=== PATIENT | female | born 1950 | race Caucasian/White ===

== ENCOUNTER 2019-08-29 14:26 | Day surgery (SDC) | payer SELFPAY ==
[~2019-08-29] VITALS: Ht 149.9 cm; Wt 59.5 kg
[~2019-08-29 14:26] MED LIST: AMLO-150 PO; ASPI-496 PO; ATOR10TA9 PO; CALC667C PO; CHOL5000 PO; CYAN1TAB29 PO; DOCU-131 PO; ENAL20TA PO; ERGO500017 PO; FOLI-17 PO; FURO-92 PO; HYDR-3240 PO; INSU100I13 SC; INSU100V14 SC; LANT1000 PO; METO-99 PO; SEVE800T7 PO; SIMV20TA3 PO
--- NOTE | 2019-08-29 14:49 | NUR ---
PT SENT IN BY DIALYSIS. HERE [facility] NOT WORKING. WAS ABLE TO GET DIALYSIS WITH NO ISSUES ON TUESDAY. DID NOT GET DIALYSIS TODAY. NAD NOTED. BREATHING REGULAR AND UNLABORED. AWAITING EVAL AND ORDERS.
--- NOTE | 2019-08-29 15:00 | NUR ---
REPORT TO JOSLYN GIRON.
--- NOTE | 2019-08-29 15:13 | NUR ---
PT IN GOWN, PT TO HAVE DIALYSIS AT THIS TIME.
[2019-08-29 15:28] LABS: BASOPHILS # (AUTO) 0.03 x10^3/uL (0-0.1); BASOPHILS % (AUTO) 1 % (0-1); EOSINOPHILS # (AUTO) 0.14 x10^3/uL (0-0.4); EOSINOPHILS % (AUTO) 2 % (1-7); LYMPHOCYTES # (AUTO) 1.58 x10^3/uL (1-3.4); LYMPHOCYTES % (AUTO) 27 % (22-44); MD NO; MEAN CORPUSCULAR HEMOGLOBIN 32.5 pg (27.0-34.8); MEAN CORPUSCULAR HGB CONC 33.3 g/dL (32.4-35.8); MEAN CORPUSCULAR VOLUME 97.6 fL (80-100); MEAN PLATELET VOLUME 7.2 fL (7.4-10.4); MONOCYTES # (AUTO) 0.33 x10^3/uL (0.2-0.8); MONOCYTES % (AUTO) 6 % (2-9); NEUTROPHILS # (AUTO) 3.77 x10^3/uL (1.8-6.8); NEUTROPHILS % (AUTO) 65 % (42-75); PLATELET COUNT 250 x10^3/uL (130-400); RED BLOOD COUNT 3.41 x10^6/uL (3.82-5.3); RED CELL DISTRIBUTION WIDTH 14.1 % (9.6-15.2)
[2019-08-29 15:39] LABS: ALBUMIN 3.8 g/dL (3.4-5.0); ANION GAP 11 mmol/L (5-15); CALCIUM 9.5 mg/dL (8.5-10.1); CHLORIDE 100 mmol/L (98-107); CREATININE 6.17 mg/dL (0.55-1.02)
[2019-08-29 15:54] LABS: INTERNATIONAL NORMALIZED RATIO 0.96 (0.93-1.1); PROTHROMBIN TIME 10.1 Seconds (9.6-11.5)
[2019-08-29 16:30] VITALS: BP 153/70
[2019-08-29] MEDS ORDERED: MIDAZOLAM 1 MG/ML, 2ML ONE (16:30)
[2019-08-29] MEDS ORDERED: FENTANYL PF 250 MCG/5ML ONE (16:30)
[2019-08-29] MEDS ORDERED: BUPIVACAINE/PF 0.5% ONE (16:38)
[2019-08-29] MEDS ORDERED: HEPARIN 1,000 UNITS/ML, 10ML ONE (16:38)
[2019-08-29] MEDS ORDERED: THROMBIN (RECOMBINANT) 5,000 UNIT VIAL TP ONE (16:38)
[2019-08-29] MEDS ORDERED: EPINEPHRINE 1 MG/ML, 1ML ONE (16:38)
--- NOTE | 2019-08-29 16:55 | NUR ---
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
[2019-08-29] MEDS ORDERED: CEFAZOLIN 1,000 MG ONE (17:18)
[2019-08-29] MEDS ORDERED: ONDANSETRON 2MG/ML, 2ML ONE (17:18)
[2019-08-29] MEDS ORDERED: DEXAMETHASONE 4 MG/ML, 1ML ONE (17:35)
[2019-08-29] MEDS ORDERED: hydrALAzine 20 MG/ML, 1ML IV PRN (18:00)
[2019-08-29] MEDS ORDERED: OXYcodone 5 MG/5 ML ORAL.SOL UDC PO PRN (18:00)
[2019-08-29] MEDS ORDERED: FENTANYL PF 100 MCG/2ML IV PRN (18:00)
[2019-08-29] MEDS ORDERED: PROMETHAZINE 25 MG/ML, 1ML IV PRN (18:00)
[2019-08-29] MEDS ORDERED: ONDANSETRON 2MG/ML, 2ML IV PRN (18:00)
[2019-08-29] MEDS ORDERED: LABETALOL 5MG/ML, 20ML IV PRN (18:00)
[2019-08-29] MEDS ORDERED: HYDROmorphone 2 MG/ML, 1ML IVPush PRN (18:00)
[2019-08-29] MEDS ORDERED: ACETAMINOPHEN 325 MG TABLET PO PRN (18:00)
[2019-08-29] MEDS ORDERED: VISIPAQUE 270 MG/ML, 50ML BOTTLE ONE (21:37)
== END 2019-08-29 21:20 | disposition home or self-care (01) ==
LOC: OUT 17:20 → EDSTATUS 19:00 → OR 19:56 → 4NE 19:58 → OR 19:58 → ED 21:15 → 4NE 21:15 → OUT 21:20 → 4NE 23:00 → ED 23:00
PROVIDERS: ATTEND Emergency Medicine
DX: T82.868A Thrombosis due to vascular prosthetic devices, implants and grafts, initial encounter (principal); E11.22 Type 2 diabetes mellitus with diabetic chronic kidney disease; I12.0 Hypertensive chronic kidney disease with stage 5 chronic kidney disease or end stage renal disease; N18.6 End stage renal disease; Z79.4 Long term (current) use of insulin; Z79.01 Long term (current) use of anticoagulants; Y83.8 Other surgical procedures as the cause of abnormal reaction of the patient, or of later complication, without mention of misadventure at the time of the procedure
CPT/HCPCS: 36415; 36905; 80048; 82040; 82962; 85025; 85610; 85730; 99284; C1757; C1769; J0171; J0690; J1100; J1644; J2250; J2405; J3010; Q9966; 75710; G0378

== ENCOUNTER 2020-11-16 16:47 | Emergency (ER) | payer SELFPAY ==
[~2020-11-16] VITALS: Ht 147.3 cm; Wt 60.6 kg
[~2020-11-16 16:47] MED LIST changes: -ENAL20TA PO; +ENAL20TA9 PO; -FOLI-17 PO; +FOLI1TAB32 PO; +HYDR-1067 PO; -HYDR-3240 PO; +SIMV20TA19 PO; -SIMV20TA3 PO
--- NOTE | 2020-11-16 17:05 | NUR ---
unable to get temp due to pt vomiting
--- NOTE | 2020-11-16 17:35 | NUR ---
TASK RN: PT ARRIVES TO ED WITH SON. W/ CO NAUSEA X ONE WEEK, TODAY VOMITING/ABD PAIN/DIARRHEA. DENIES HEMATEMSIS, MELENA, CHEST PAIN, FEVER. DENIES PAIN WITH URINATON, THOUGH MINIMAL URINE PRODUCTION AT BASELINE D/T HX OF CKD AND DIALYSIS. DIALYSIS M/W/F. BP/SPO2 MONITORING IN PLACE.
[2020-11-16] MEDS ORDERED: INSU100C SQ-INSULIN (17:38)
[2020-11-16] MEDS ORDERED: ASPI-1024 PO (17:38)
[2020-11-16] MEDS ORDERED: ONDANSETRON ODT 4 MG ONE (17:47)
[2020-11-16] MEDS ORDERED: ONDANSETRON ODT 4 MG PO ONE (18:00)
[2020-11-16] MEDS ORDERED: FAMOTIDINE 20 MG TABLET PO ONE (18:00)
[2020-11-16] MEDS ORDERED: MAALOX/HYOSCYAMINE/LIDOCAINE 45 ML BTL PO ONE (18:00)
[2020-11-16] MEDS ORDERED: FAMOTIDINE 20 MG TABLET ONE (18:09)
[2020-11-16] MEDS ORDERED: MAALOX/HYOSCYAMINE/LIDOCAINE 45 ML BTL ONE (18:09)
--- NOTE | 2020-11-16 18:15 | NUR ---
MEDS ADMIN PER DEC. PT STATES NO VOMITTING SINCE ZOFRAN. PT RESTING COMFORTABLY ON GURNEY. HARRIET Chua
--- NOTE | 2020-11-16 18:16 | NUR ---
PT GOING TO US.
[2020-11-16 18:22] LABS: BASOPHILS % (AUTO) 1 % (0-1); EOSINOPHILS % (AUTO) 2 % (1-7); LYMPHOCYTES % (AUTO) 11 % (22-44); MEAN CORPUSCULAR HGB CONC 33.8 g/dL (32.4-35.8); MEAN PLATELET VOLUME 7.7 fL (7.4-10.4); MONOCYTES % (AUTO) 4 % (2-9); NEUTROPHILS % (AUTO) 82 % (42-75); PLATELET COUNT 277 x10^3/uL (130-400); RED CELL DISTRIBUTION WIDTH 16.4 % (9.6-15.2)
[2020-11-16 18:23] LABS: MD NO
[2020-11-16 18:31] LABS: ALBUMIN 3.7 g/dL (3.4-5.0); ANION GAP 7 mmol/L (5-15); CHLORIDE 98 mmol/L (98-107)
[2020-11-16 18:34] LABS: ALANINE AMINOTRANSFERASE 23 U/L (12-78); ALKALINE PHOSPHATASE 209 U/L (45-117); BILIRUBIN,TOTAL 0.5 mg/dL (0.2-1.0); CREATININE 9.12 mg/dL (0.55-1.02)
--- NOTE | 2020-11-16 18:55 | NUR ---
PT STATES SHE IS FEELING BETTER AFTER MEDS. NO MORE STOMACH PAIN. SON AT BEDSIDE.
--- NOTE | 2020-11-16 19:00 | NUR ---
PT STATES SHE IS UNABLE TO PROVIDE URINE SAMPLE AT THIS TIME, D/T DIALYSIS.
--- NOTE | 2020-11-16 19:22 | NUR ---
ALL RESULTS ARE BACK AT THIS TIME. CHART UP FOR RECHECK.
[2020-11-16] MEDS ORDERED: OMEPRAZOLE 20 MG CAPSULE.DR PO ONE (20:00)
[2020-11-16] MEDS ORDERED: SODIUM ZIRCONIUM CYCLOSILICATE 10 GM PO ONE (20:00)
[2020-11-16] MEDS ORDERED: OMEPRAZOLE 20 MG CAPSULE.DR ONE ×2 (20:10→20:11)
--- NOTE | 2020-11-16 20:15 | NUR ---
MED REQUESTED FROM PHARMACY
--- NOTE | 2020-11-16 20:32 | NUR ---
PRILO[facility] ADMIN PER DEC. PER SAROJ ROSAS TO SEND [facility] HOME WITH PT TO TAKE IN 2 HOURS PER MED INSTRUCTIONS. PT AND SON GIVEN DIRECTIONS ON STOGIE PACKER AND VERBALIZED UNDERSTANDING.
[2020-11-16 20:34] VITALS: BP 180/88
== END 2020-11-16 20:56 | disposition home or self-care (01) ==
LOC: ED 20:41
DX: R10.13 Epigastric pain (principal); R10.30 Lower abdominal pain, unspecified; R11.2 Nausea with vomiting, unspecified; E11.9 Type 2 diabetes mellitus without complications; K21.9 Gastro-esophageal reflux disease without esophagitis
CPT/HCPCS: 36415; 76700; 80053; 83690; 85025; 99285; Q0162

== ENCOUNTER 2020-11-23 19:00 | Inpatient (IN) | payer MEDICAID, OTHER ==
[~2020-11-23] VITALS: Ht 149.9 cm; Wt 61.3 kg
[~2020-11-23 19:00] MED LIST changes: +ASPI-963 PO; +INSU100C SQ-INSULIN
--- NOTE | 2020-11-23 19:54 | NUR ---
Patient presents to ER c/o nausea; no vomiting. Denies abd pain or urinary symptoms. Patient was seen here for same last Tuesday. Symptoms have continued since then. Patient is in NAD. Respirations even and unlabored.
[2020-11-23] MEDS ORDERED: ONDANSETRON ODT 4 MG PO ONE (20:00)
[2020-11-23] MEDS ORDERED: ONDANSETRON ODT 4 MG ONE (20:12)
--- NOTE | 2020-11-23 20:19 | NUR ---
Patient also has a hx of CKD and receives dialysis. Admin meds per dec.
[2020-11-23 20:22] LABS: ALANINE AMINOTRANSFERASE 24 U/L (12-78); ALBUMIN 3.7 g/dL (3.4-5.0); ANION GAP 9 mmol/L (5-15); CALCIUM 9.7 mg/dL (8.5-10.1); CHLORIDE 101 mmol/L (98-107); CREATININE 9.48 mg/dL (0.55-1.02)
[2020-11-23 20:23] LABS: ALKALINE PHOSPHATASE 191 U/L (45-117); BILIRUBIN,TOTAL 0.5 mg/dL (0.2-1.0); TOTAL PROTEIN 7.9 g/dL (6.4-8.2)
[2020-11-23 20:36] LABS: BASOPHILS % (AUTO) 1 % (0-1); EOSINOPHILS % (AUTO) 2 % (1-7); LYMPHOCYTES % (AUTO) 18 % (22-44); MEAN CORPUSCULAR HEMOGLOBIN 32.3 pg (27.0-34.8); MEAN CORPUSCULAR HGB CONC 34.3 g/dL (32.4-35.8); MEAN PLATELET VOLUME 7.4 fL (7.4-10.4); MONOCYTES % (AUTO) 6 % (2-9); NEUTROPHILS % (AUTO) 73 % (42-75); PLATELET COUNT 235 x10^3/uL (130-400); RED BLOOD COUNT 3.35 x10^6/uL (3.82-5.3); RED CELL DISTRIBUTION WIDTH 16.4 % (9.6-15.2)
[2020-11-23 20:48] LABS: MD NO
[2020-11-23] MEDS ORDERED: hydrALAzine 20 MG/ML, 1ML IV ONE (21:00)
[2020-11-23] MEDS ORDERED: hydrALAzine 20 MG/ML, 1ML ONE (21:44)
--- NOTE | 2020-11-23 22:21 | NUR ---
Report given to JOSLYN Mcdonald. Patient to be transferred to dialysis room then room 488-2.
[2020-11-24] MEDS ORDERED: MELATONIN 5 MG TABLET PO PRN
[2020-11-24] MEDS ORDERED: ESOMEPRAZOLE 40 MG IV IVPush ONE
[2020-11-24] MEDS ORDERED: ONDANSETRON 2MG/ML, 2ML IVPush PRN
[2020-11-24] MEDS ORDERED: DOCUSATE 100 MG CAPSULE PO PRN
[2020-11-24] MEDS ORDERED: ACETAMINOPHEN 325 MG TABLET PO PRN
[2020-11-24] MEDS ORDERED: LIDODERM 5% PATCH TD PRN
[2020-11-24 02:32] VITALS: BP 157/76
[2020-11-24] MEDS: HEPARIN 5,000 UNITS/ML, 1ML SQ SCH ×3 (02:37→16:37)
[2020-11-24] MEDS ORDERED: OMEP20CA20 PO (04:41)
[2020-11-24] MEDS ORDERED: CINA30TA2 PO (04:44)
[2020-11-24 05:13] LABS: MICROSCOPIC INDICATED
[2020-11-24 06:39] VITALS: BP 172/76
[2020-11-24] MEDS ORDERED: hydrALAzine 20 MG/ML, 1ML IV PRN (08:00)
[2020-11-24] MEDS: INSULIN LISPRO 100 UNITS/ML, PEN SQ-INSULIN SCH ×4 (08:43→22:04)
[2020-11-24 09:37] LABS: BASOPHILS % (AUTO) 1 % (0-1); EOSINOPHILS % (AUTO) 3 % (1-7); LYMPHOCYTES % (AUTO) 21 % (22-44); MEAN CORPUSCULAR HEMOGLOBIN 31.9 pg (27.0-34.8); MEAN CORPUSCULAR HGB CONC 33.9 g/dL (32.4-35.8); MEAN PLATELET VOLUME 7.6 fL (7.4-10.4); MONOCYTES % (AUTO) 7 % (2-9); NEUTROPHILS % (AUTO) 68 % (42-75); PLATELET COUNT 214 x10^3/uL (130-400); RED BLOOD COUNT 3.34 x10^6/uL (3.82-5.3)
[2020-11-24 09:42] LABS: MD NO
[2020-11-24 09:49] LABS: CALCIUM 8.8 mg/dL (8.5-10.1)
[2020-11-24 10:01] LABS: ANION GAP 7 mmol/L (5-15); CHLORIDE 97 mmol/L (98-107); CREATININE 5.48 mg/dL (0.55-1.02)
[2020-11-24] MEDS: FOLIC ACID 1 MG TABLET PO SCH (11:08)
[2020-11-24] MEDS: METOPROLOL TARTRATE 50 MG TAB PO SCH (11:08)
[2020-11-24] MEDS: CINACALCET 30 MG TABLET PO SCH (11:08)
[2020-11-24 11:15] VITALS: BP 125/72
[2020-11-24 12:03] VITALS: BP 154/66
[2020-11-24] MEDS: TEMPLATE NON-FORMULARY MED. (Lanthanum Carbonate** (Fosrenol**) 1,000 MG) PO SCH ×2 (13:00→18:00)
[2020-11-24 18:44] VITALS: BP 155/68
[2020-11-24] MEDS ORDERED: AMLODIPINE 5 MG TABLET PO SCH (21:00)
[2020-11-24] MEDS ORDERED: ATORVASTATIN 10 MG TABLET PO SCH (21:00)
[2020-11-24] MEDS ORDERED: ASPIRIN 81 MG TABLET EC PO SCH (21:00)
[2020-11-25] MEDS: HEPARIN 5,000 UNITS/ML, 1ML SQ SCH ×3 (00:26→15:28)
[2020-11-25 01:35] VITALS: BP 157/66
[2020-11-25 05:41] LABS: BASOPHILS % (AUTO) 1 % (0-1); EOSINOPHILS % (AUTO) 4 % (1-7); LYMPHOCYTES % (AUTO) 36 % (22-44); MEAN CORPUSCULAR HEMOGLOBIN 32.6 pg (27.0-34.8); MEAN CORPUSCULAR HGB CONC 34.5 g/dL (32.4-35.8); MEAN PLATELET VOLUME 7.7 fL (7.4-10.4); MONOCYTES % (AUTO) 11 % (2-9); NEUTROPHILS % (AUTO) 48 % (42-75); PLATELET COUNT 209 x10^3/uL (130-400); RED BLOOD COUNT 3.37 x10^6/uL (3.82-5.3); RED CELL DISTRIBUTION WIDTH 15.8 % (9.6-15.2)
[2020-11-25 05:42] LABS: MD NO
[2020-11-25 05:51] LABS: ALBUMIN 3.2 g/dL (3.4-5.0); ANION GAP 8 mmol/L (5-15); CHLORIDE 98 mmol/L (98-107); CREATININE 4.66 mg/dL (0.55-1.02)
[2020-11-25 06:43] VITALS: BP 160/67
[2020-11-25] MEDS: METOPROLOL TARTRATE 50 MG TAB PO SCH (07:58)
[2020-11-25] MEDS: CINACALCET 30 MG TABLET PO SCH (07:58)
[2020-11-25] MEDS: FOLIC ACID 1 MG TABLET PO SCH (07:58)
[2020-11-25] MEDS: TEMPLATE NON-FORMULARY MED. (Lanthanum Carbonate** (Fosrenol**) 1,000 MG) PO SCH ×3 (08:00→18:00)
[2020-11-25] MEDS: INSULIN LISPRO 100 UNITS/ML, PEN SQ-INSULIN SCH ×3 (08:09→17:15)
[2020-11-25 12:06] VITALS: BP 138/63
== END 2020-11-25 18:27 | disposition home or self-care (01) | DRG 425 ==
LOC: ED 20:52 → EDIP 21:18 → 4EST 22:45
PROVIDERS: ADMIT Emergency Medicine; ATTEND Internal Medicine
PROC: 5A1D70Z Performance of Urinary Filtration, Intermittent, Less than 6 Hours Per Day (ICD-10-PCS; principal; 2020-11-23)
DX: E87.5 Hyperkalemia (principal); D63.1 Anemia in chronic kidney disease; E11.22 Type 2 diabetes mellitus with diabetic chronic kidney disease; E11.65 Type 2 diabetes mellitus with hyperglycemia; E87.1 Hypo-osmolality and hyponatremia; E87.8 Other disorders of electrolyte and fluid balance, not elsewhere classified; K21.9 Gastro-esophageal reflux disease without esophagitis; R74.8 Abnormal levels of other serum enzymes; I12.0 Hypertensive chronic kidney disease with stage 5 chronic kidney disease or end stage renal disease; I95.3 Hypotension of hemodialysis; N18.6 End stage renal disease; Z79.4 Long term (current) use of insulin; Z99.2 Dependence on renal dialysis; Z91.013 Allergy to seafood; Z98.51 Tubal ligation status
CPT/HCPCS: 36415; 74022; 80048; 80053; 80069; 81001; 82962; 83690; 83735; 84100; 85025; 86704; 86706; 87086; 87340; 90935; 93005; 96374; 99285; G0378; J1644; J2405; Q0162; J0360; J1815